=== PATIENT | female | born 2000 | race Two or more races ===

== ENCOUNTER 2024-01-11 14:52 | Emergency (ER) | payer MEDICAID, OTHER ==
[~2024-01-11] VITALS: Ht 170.2 cm; Wt 66.9 kg
[2024-01-11 15:56] LABS: Urine Bacteria None Seen /hpf (None Seen)
[2024-01-11 16:14] LABS: Urine Blood Negative /uL (Negative); Urine Clarity Clear (Clear); Urine Color Yellow (Yellow); Urine Mucus FEW (None Seen); Urine Protein, UAD TRACE (Negative); Urine Specific Gravity 1.029 (1.001-1.035); Urine Urobilinogen Normal (Negative); Urine WBC 18 /hpf (0 - 5); Urine pH 6.5 (5.0-9.0)
[2024-01-11 16:20] LABS: Basophils # (auto) 0 10 ^3/uL (0-0.2); Basophils % (auto) 0.5 % (0.0-2.0); Eosinophils # (auto) 0.1 10 ^3/uL (0-0.8); Eosinophils % (auto) 1.8 % (0.0-7.0); Hematocrit 39.5 % (36.0-46.0); Hemoglobin 13.9 g/dL (12.2-16.2); Lymphocytes # (auto) 2.2 10 ^3/uL (0.4-5.4); Lymphocytes % (auto) 27.5 % (10.0-50.0); Mean Corpuscular Hemoglobin 30.7 pg (28.0-32.0); Mean Corpuscular Hgb Conc. 35.1 g/dL (32.0-36.0); Mean Corpuscular Volume 87.5 fL (80.0-100.0); Monocytes # (auto) 0.7 10 ^3/uL (0-1.3); Monocytes % (auto) 8.7 % (0.0-12.0); Neutrophils % (auto) 61.5 % (37.0-80.0); Red Blood Cells 4.52 10^6/uL (4.0-5.20); Red Cell Distribution Width 13.1 % (11.8-14.3); White Blood Cell 8.1 10^3/uL (4.4-10.8)
[2024-01-11 16:31] LABS: Chloride 105 mmol/L (98-107); Potassium 3.4 mmol/L (3.5-5.1); Sodium 135 mmol/L (136-145)
[2024-01-11 16:32] LABS: Anion Gap 7 (5-15); Calcium 9.5 mg/dL (8.7-10.4); Carbon Dioxide 23 mmol/L (20-30)
[2024-01-11 16:37] LABS: BUN/Creatinine Ratio 12.7 (10.0-20.0); Blood Urea Nitrogen 9 mg/dL (9-23); Glucose 83 mg/dL (74-106)
[2024-01-11] MEDS: NITROFURANTOIN 100 mg CAP PO ONE (17:00)
[2024-01-11] MEDS ORDERED: NITR-87 PO (17:01)
[2024-01-11] MEDS ORDERED: ZOFR4T PO (17:01)
[2024-01-11 17:35] VITALS: BP 129/72; PULSE 98; RESP 20; TEMP 98.2; O2SAT 100
== END 2024-01-11 17:42 | disposition home or self-care (01) ==
LOC: ER 14:52
DX: O23.41 Unspecified infection of urinary tract in pregnancy, first trimester (principal); R10.2 Pelvic and perineal pain; N39.0 Urinary tract infection, site not specified; Z3A.01 Less than 8 weeks gestation of pregnancy
CPT/HCPCS: 36415; 80048; 81001; 84702; 85025

== ENCOUNTER 2024-09-11 18:51 | Observation (INO) | payer MEDICAID ==
[~2024-09-11] VITALS: Ht 170.2 cm; Wt 81.6 kg
[~2024-09-11 18:51] MED LIST: NITR-87 PO; ZOFR4T PO
--- NOTE | 2024-09-11 20:23 | DVH ---
BIOPHYSICAL PROFILE HISTORY: Term Comparison Study: None available at time of dictation. TECHNIQUE: Multiple real-time grayscale sonographic images through the gravid uterus of the fetus wi th duplex Doppler color flow and M-mode spectral analysis FINDINGS: Transabdominal ultrasound examination demonstrates a fetus in cephalic position. Heart rate is 163 be ats per minute. Placenta is anterior without evidence previa breathing is 2/2. movements 2/2. tone is 2/2. Fluid index is 12.93 cm with deepest pocket = 4.31 cm amniotic fluid = 2/2. IMPRESSION: 1. Biophysical profile = 02/05 no evidence for placenta previa and fetus is in cephalic position
--- NOTE | 2024-09-11 20:42 | DVHDS2 ---
Physician Discharge Progress N Final Diagnosis: Danis Azar contractions Operations or Procedures: Operations or Procedures S: 24 yo , IUP@40.1wks presents to OB Triage for vaginal pressure, DFM, and UCs since 09/10/24 afternoon. Denies LOF, vaginal bleeding, VIDAL, vision changes, RUQ pain. Limited PNC at [facility] with Lisset SANCHEZ due to pt no shows. Pt was asked why she has not been coming to appt's since 08/11/24, pt said due to personal reasons and did not elaborate. Pt reports OB labs/GTT drawn at [facility] in [place] months ago. Pt states she took castor oil a week ago to induce labor. O: VSS NST reactive [place]: Ucs q 7-12 min. SVE by RN: [facility] called, no lab results available. Walk-in OB labs and GBS ordered A: 24 yo , IUP@40.1wks [place] Azar contractions P: D/C home Discussed risk of meconium fluid when using castor oil, advised against it. FKC, PreE, Labor precautions reviewed Other Interventions Other Interventions [place] [address] Ph: [phone] DIAGNOSTIC IMAGING Diagnostic Imaging Report : [id number] Signed PATIENT: [place]: [id number] UNIT: [id number] : 2000 LOC: [facility] ROOM / BED: TRIAGE1 / A AGE / SEX: 24 / F ADM STATUS: ADM IN SERVICE 335 ORDERING PHYSICIAN: RISHI ORR CNM PROCEDURE(s): BPP - BIOPHYSICAL PROFILE REASON: Term ORDER NUMBER(s): [id number], ACCESSION NUMBER(s): [id number] BIOPHYSICAL PROFILE HISTORY: Term Comparison Study: None available at time of dictation. TECHNIQUE: Multiple real-time grayscale sonographic images through the gravid uterus of the fetus with duplex Doppler color flow and M-mode spectral analysis FINDINGS: Transabdominal ultrasound examination demonstrates a fetus in cephalic position. Heart rate is 163 beats per minute. Placenta is anterior without evidence previa breathing is 2/2. movements 2/2. tone is 2/2. Fluid index is 12.93 cm with deepest pocket = 4.31 cm amniotic fluid = 2/2. IMPRESSION: 1. Biophysical profile = 88 no evidence for placenta previa and fetus is in cephalic position ATED BY: REJI TRINIDAD MD DICTATED DATE/TIME: 09/11/242020 SIGNED BY: REJI TRINIDAD MD SIGNED DATE/TIME: 09/11/242020 CC: Condition on Discharge: Stable Disposition: Home Discharge Instructions: Diet: Regular Activity: No Restrictions, As Tolerated Follow Up/Referral: Return to OB Triage in 2 days Medications: PNV Follow Up Care: Specialist: f/u in 2 days Discharge Statement: kick counts and Preeclampsia warning signs reviewed. Labor precautions given and when to return to the hospital. OSCAR RICHARDS STUDENTMDW Sep 11, 2024 20:42
[2024-09-11 21:10] LABS: Basophils # (auto) 0 10 ^3/uL (0-0.2); Basophils % (auto) 0.3 % (0.0-2.0); Eosinophils # (auto) 0.1 10 ^3/uL (0-0.8); Hematocrit 40.7 % (36.0-46.0); Hemoglobin 13.5 g/dL (12.2-16.2); Lymphocytes # (auto) 1.9 10 ^3/uL (0.4-5.4); Lymphocytes % (auto) 16.5 % (10.0-50.0); Mean Corpuscular Hemoglobin 29.1 pg (28.0-32.0); Mean Corpuscular Hgb Conc. 33.3 g/dL (32.0-36.0); Mean Corpuscular Volume 87.3 fL (80.0-100.0); Monocytes # (auto) 0.8 10 ^3/uL (0-1.3); Monocytes % (auto) 7.2 % (0.0-12.0); Neutrophils # (auto) 8.5 10 ^3/uL (1.6-8.6); Nucleated Red Blood Cells % 0.1 %; Platelet Count (auto) 254 10^3/uL (140-450); Red Blood Cells 4.66 10^6/uL (4.0-5.20); Red Cell Distribution Width 14.3 % (11.8-14.3); White Blood Cell 11.3 10^3/uL (4.4-10.8)
[2024-09-11 21:13] LABS: Amphetamine Screen, Urine Neg (NEGATIVE); Barbiturate Scree,Urine Neg (NEGATIVE); Benzodiazephine Screen, Urine Neg (NEGATIVE); Cannabinoid Screen, Urine Neg (NEGATIVE); Cocaine Screen, Urine Neg (NEGATIVE); Opiate Scree,Urine Neg (NEGATIVE); Phencyclidine Screen, Urine Neg (NEGATIVE)
[2024-09-11 21:24] LABS: INR 0.92 (0.9-1.15); Partial Thromboplastin Time 27.8 SEC (24.5-34.5); Prothrombin Time 9.8 sec (9.3-11.8)
[2024-09-11 21:35] LABS: Albumin 4.2 g/dL (3.2-4.8); Anion Gap 10 (5-15); BUN/Creatinine Ratio 9.5 (10.0-20.0); Calcium 9.3 mg/dL (8.7-10.4); Glucose 95 mg/dL (74-106); Potassium 3.6 mmol/L (3.5-5.1); Sodium 138 mmol/L (136-145); Total Protein 7.1 g/dL (5.7-8.2)
[2024-09-11 21:37] LABS: Alanine Aminotransferase < 9 U/L (7-40); Alkaline Phosphatase 221 U/L (46-116); Aspartate Aminotransferase 9 U/L (13-40); Bilirubin, Total 0.2 mg/dL (0.2-1.0); Blood Urea Nitrogen 6 mg/dL (9-23); Carbon Dioxide 20 mmol/L (20-31); Chloride 108 mmol/L (98-107)
[2024-09-15 04:07] LABS: Rubella Antibodies, IgG 2.29 index (Immune >0.99)
[2024-09-15 12:07] LABS: QuantiFERON-TB Gold Plus Negative (Negative)
== END 2024-09-11 21:12 | disposition home or self-care (01) ==
LOC: LDRP 18:51
PROVIDERS: ADMIT Obstetrics & Gynecology; ATTEND Obstetrics & Gynecology
DX: O47.1 False labor at or after 37 completed weeks of gestation (principal); Z98.890 Other specified postprocedural states; Z79.899 Other long term (current) drug therapy; Z3A.40 40 weeks gestation of pregnancy
CPT/HCPCS: 36415; 59025; 76819; 80053; 80307; 81002; 83036; 85025; 85610; 85730; 86703; 86762; 86780; 86803; 86850; 86900; 86901; 87081; 87340; 94760; G0378

== ENCOUNTER 2024-09-13 00:28 | Inpatient (IN) | payer MEDICAID ==
[~2024-09-13] VITALS: Ht 170.2 cm; Wt 81.6 kg
[2024-09-13] MEDS ORDERED: ePHEDrine SULFATE 50 MG/ML AMP IV ONE (01:30)
[2024-09-13] MEDS ORDERED: NALOXONE HCL 0.4 MG/ML VIAL IV ONE (01:30)
[2024-09-13] MEDS ORDERED: LIDOCAINE 2%HCL (LOCAL ANESTH.) INJ 20ML MDV IJ PRN (01:45)
--- NOTE | 2024-09-13 01:51 | DVHHP2 ---
OB CC & HPI Date Date of Admission: Sep 13, 2024 Patient Identification: : 1 Para: 0 EDC: Sep 12, 2024 EGA: 40.1wks Chief Complaints: Reason for admission: rupture of membranes (Pt reports SROM at 2330 on 09/12/24) Admission Nurse Assessment Rev: Yes History of Present Complaints 24yo IUP@40.1wks presents for SROM at 2330 on 09/12/24. Pt reports UCs Q5 min. Pt reports DFM. Denies VB/VIDAL/vision changes/RUQ pain. Wants an epidural. PNC: Limited PNC at [facility] with Azy, CNM due to pt no shows. Last visit was on 08/11/24. GTT unknown, GBS collected on 09/11/24 in triage, results pending. Past Medical History Cardiac: No pertinent Hx Pulmonary: No pertinent Hx Central Nervous System: No pertinent Hx GI: No pertinent Hx Hemotology/Oncology: No pertinent Hx Hepatobiliary: No pertinent Hx Psychiatric: No pertinent Hx Musculoskeletal: No pertinent Hx Rheumotologic: No pertinent Hx Infectious Disease: No peritnent Hx ENT: No pertinent Hx Renal/: No pertinent Hx Endocrine: No pertinent Hx Dermatology: No pertinent Hx Past Surgical History: No pertinent Hx OB History OB History Care: Limited Care Ultrasounds: Normal mid trimester US Obstetrical Complications: None Medical Complications: None Allergies: Coded Allergies: NO KNOWN ALLERGIES (Unverified , 09/11/24) Allergies NKA Home Meds Active Scripts Ondansetron Odt 4MG Tab (ZOFRAN PO) 4 Mg Tb, 4 MG PO Q6HP PRN, #20 TAB ODT TAB-DISSOLVE IN MOUTH, THEN SWALLOW Prov:JOO AVENDAÑO PAC 01/11/24 Nitrofurantoin Monohydrate Mac (Macrobid) 100 Mg Cap, 100 MG PO BID for 5 Days, #10 CAP Prov:JOO AVENDAÑO PAC 01/11/24 Current Medications Current Medications Medications (Trade) Dose Ordered Sig/Mj Route PRN Reason Start Time Stop Time Status Last Admin Lactated Ringer's 1,000 ml @ 125 mls/hr Q8H IV 09/13/24 01:45 Penicillin G Potassium [id number] units/Dextrose 50 ml @ 100 mls/hr Q4H IV 09/13/24 05:45 Witch Marilyn (Tucks) 1 pad PRN PRN TOP PERINEAL AREA DISCOMFORT 09/13/24 01:45 Sodium Lauryl Sulfate (Phisoderm) 240 ml PRN PRN TOP PERINEAL AREA DISCOMFORT 09/13/24 01:45 Benzocaine (Dermoplast) 1 applic PRN PRN TOP PERINEAL AREA DISCOMFORT 09/13/24 01:45 Lidocaine HCl (Xylocaine) 40 ml ONCE PRN IJ PERINEAL AREA DISCOMFORT 09/13/24 01:45 Family & Social History Family/Social History Past Family/Social History: Denies Blood Type: O+ Rubella: unknown RPR/VDRL: Negative GBS Status: Unknown HBsAG: Unknown Review of Systems Constitutional: No symptom reported Ears, Nose, & Throat: No symptom reported Eyes: No symptom reported Pulmonary/Respiratory: No symptom reported Cardiovascular: No symptom reported Gastrointestinal: No symptom reported Genitourinary: No symptom reported Musculoskeletal: No symptom reported Skin: No symptom reported Psychiatric: No symptom reported Endocrine: No symptom reported Hemotologic/Lymphatic: No symptom reported OB Admission Exam Physical Exam Vitals: VSS, see chart HEENT: TMs Normal, Fontanelles Normal, Nasal Mucosa Normal, Eyes non-injected, Oropharynx Normal, PERRLA, Moist Membranes, EOMI Heart: Rhythm Normal Lungs: Clear Abdomen: Gravid Extremities: Normal Reflexes: Normal Pelvic Exam: SVE by RN 2.5/80/-2 Membranes: Ruptured (at 2330 on 09/12/24 per patient report) Amniotic Fluid: Clear Heart Rate: 150's Accelerations: Accelerations Present Decelerations: No Decelerations Penitentiary Variability: Average (6-25) Contractions on Admission: < 5 Minutes Apart Date/Time Contractions Began: 09/12/24 Frequency of Contractions: pt states every 5 min Duration: 90 Intensity: Moderate OB Plan Plan Admitting Diagnosis: 24yo IUP@40.1wks SROM Category I EFM GBS unknown Plan: Expectant Management Other Plan: Admit to L&D Informed consent obtained Expectant management for now due to frequent UCs Discussed potential of starting pitocin with pt. Pt agrees with POC. monitoring per order Routine labs ordered Pain mgmt PRN GBS prophylaxis Frequent position changes/ambulation in and out of bed encouraged Limit SVE unless necessary Intrauterine resuscitation PRN Anticipate CNM will consult with Dr. Vasquez PRN Visit Coding OBGYN Date of Service: Sep 13, 2024 Billing Provider: GAGAN LIVINGSTON CNM TELEGRAPH MECHANIC Common Visit Codes: 31515-TASWUMP INP/OBS CARE (HIGH) TELEGRAPH MECHANIC Procedure Codes: 65529-84- NON-STRESS TEST OSCAR RICHARDS STUDENTMDW Sep 13, 2024 01:51
[2024-09-13] MEDS: DERMOPLAST 60ML BOTTLE TOP PRN (02:15)
[2024-09-13] MEDS: PHISODERM TOP SOLN 240ML BTL TOP PRN (02:15)
[2024-09-13] MEDS: WITCH HAZEL-GLYCERIN PAD TOP PRN (02:15)
[2024-09-13] MEDS: LACTATED RINGER'S 1,000 ML IV SCH (02:18)
[2024-09-13] MEDS: PENICILLIN G POT 5MIL/D5 50ML 50 ML IV ONE (02:18)
[2024-09-13 02:33] LABS: Urine Bacteria FEW /hpf (None Seen); Urine Blood Negative /uL (Negative); Urine Budding Yeast OCCASIONAL /hpf (None Seen); Urine Clarity Clear (Clear); Urine Color Yellow (Yellow); Urine Hyaline Cast FEW /lpf (0 - 2); Urine Mucus FEW (None Seen); Urine Protein, UAD 1+ (Negative); Urine Specific Gravity 1.021 (1.001-1.035); Urine Squamous Epithelial Cell FEW /hpf (<5); Urine Urobilinogen Normal (Negative); Urine WBC 16 /HPF (0-5)
[2024-09-13] MEDS: ROPIVACAINE HCL 200 ML ONE (02:35)
[2024-09-13 03:22] LABS: Cannabinoid Screen, Urine Neg (NEGATIVE)
[2024-09-13 04:49] LABS: Amphetamine Screen, Urine Neg (NEGATIVE); Barbiturate Scree,Urine Neg (NEGATIVE); Benzodiazephine Screen, Urine Neg (NEGATIVE); Cocaine Screen, Urine Neg (NEGATIVE); Opiate Scree,Urine Neg (NEGATIVE); Phencyclidine Screen, Urine Neg (NEGATIVE)
--- NOTE | 2024-09-13 05:11 | DVH ---
LIMITED OB ULTRASOUND > 14 WKS: HISTORY: 40.3 AND LIMITED PNC TECHNIQUE: Multiple real-time grayscale images of the gravid uterus with duplex Doppler color flow an d M-mode spectral analysis. TRANSDUCER: Transabdominal FINDINGS: IUP single live fetus at 40 weeks 0 days based on composite averages of the BPD, head circumference, abdominal circumference and femur length Estimated weight 3983 grams heart rate 145 beats per minute KELLEY 7.6 cm Cervix not well visualized. Cephalic Presentation Anterior Placenta without previa or abruption. IMPRESSION: IUP single live fetus at 40 weeks 0 days AUA corresponding to an SRINI of 09/13/2024.
[2024-09-13] MEDS ORDERED: LACT. RINGERS/OXYTOCIN 20UNITS 500 ML IV ONE ×2 (06:00→06:30)
[2024-09-13] MEDS: PENICILLIN G POTASSIUM 2,500,000 UNITS in D5W 5% 50 ML IV SCH (06:09)
--- NOTE | 2024-09-13 08:28 | DVHPN2 ---
Chief Complaints Patient reports: No new complaints Nursing reports: No new complaints Objective Medications Current Medications Medications (Trade) Dose Ordered Sig/Mj Route PRN Reason Start Time Stop Time Status Last Admin Benzocaine (Dermoplast) 1 applic PRN PRN TOP PERINEAL AREA DISCOMFORT 09/13/24 01:45 09/13/24 02:15 Lactated Ringer's 1,000 ml @ 125 mls/hr Q8H IV 09/13/24 01:45 09/13/24 02:18 Lidocaine HCl (Xylocaine) 40 ml ONCE PRN IJ PERINEAL AREA DISCOMFORT 09/13/24 01:45 Ondansetron HCl (Zofran) 4 mg Q4HPRN PRN IV NAUSEA / VOMITING 09/13/24 07:30 Penicillin G Potassium [id number] units/Dextrose 50 ml @ 100 mls/hr Q4H IV 09/13/24 05:45 09/13/24 06:09 Sodium Lauryl Sulfate (Phisoderm) 240 ml PRN PRN TOP PERINEAL AREA DISCOMFORT 09/13/24 01:45 09/13/24 02:15 Witch Marilyn (Tucks) 1 pad PRN PRN TOP PERINEAL AREA DISCOMFORT 09/13/24 01:45 09/13/24 02:15 Others ve- 10/0 Ass/Plan Assessment active labor Plan possib of shoulder dystocia option of pcs to avoid that d/w pt .pt doesnt want it and wants to proceed with trial of labor .pt missed all her apts from aug onwards and presented in active labor Visit Coding OBGYN Date of Service: Sep 13, 2024 Billing Provider: LAURA LIRIANO DO SHOEMAKER APPRENTICE Common Visit Codes: 58189-MJK/OBS SAME DATE (HIGH) SHOEMAKER APPRENTICE Procedure Codes: 38335-64- NON-STRESS TEST LAURA LIRIANO DO Sep 13, 2024 08:28
[2024-09-13 09:47] LABS: Basophils # (auto) 0 10 ^3/uL (0-0.2); Basophils % (auto) 0.1 % (0.0-2.0); Eosinophils # (auto) 0 10 ^3/uL (0-0.8); Hematocrit 39.4 % (36.0-46.0); Lymphocytes # (auto) 0.9 10 ^3/uL (0.4-5.4); Lymphocytes % (auto) 5.2 % (10.0-50.0); Mean Corpuscular Hemoglobin 28.7 pg (28.0-32.0); Mean Corpuscular Volume 86.9 fL (80.0-100.0); Monocytes # (auto) 1.2 10 ^3/uL (0-1.3); Monocytes % (auto) 6.9 % (0.0-12.0); Neutrophils # (auto) 15.8 10 ^3/uL (1.6-8.6); Neutrophils % (auto) 87.8 % (37.0-80.0); Nucleated Red Blood Cells % 0.2 %; Platelet Count (auto) 227 10^3/uL (140-450); Red Blood Cells 4.53 10^6/uL (4.0-5.20); Red Cell Distribution Width 13.8 % (11.8-14.3); White Blood Cell 17.9 10^3/uL (4.4-10.8)
[2024-09-13 10:01] LABS: INR 0.97 (0.9-1.15); Partial Thromboplastin Time 29.2 SEC (24.5-34.5); Prothrombin Time 10.3 sec (9.3-11.8)
[2024-09-13 10:03] LABS: Anion Gap 10 (5-15); Bilirubin, Total 0.5 mg/dL (0.2-1.0); Calcium 9.3 mg/dL (8.7-10.4); Carbon Dioxide 21 mmol/L (20-31); Chloride 105 mmol/L (98-107); Glucose 101 mg/dL (74-106); Potassium 3.9 mmol/L (3.5-5.1); Total Protein 6.6 g/dL (5.7-8.2)
[2024-09-13 10:04] LABS: Alanine Aminotransferase < 9 U/L (7-40); Alkaline Phosphatase 203 U/L (46-116); Aspartate Aminotransferase 11 U/L (13-40); BUN/Creatinine Ratio 6.8 (10.0-20.0); Blood Urea Nitrogen < 5 mg/dL (9-23); Sodium 136 mmol/L (136-145)
--- NOTE | 2024-09-13 11:47 | DVHPN2 ---
Chief Complaints Patient reports: No new complaints Nursing reports: No new complaints Objective Medications Current Medications Medications (Trade) Dose Ordered Sig/Mj Route PRN Reason Start Time Stop Time Status Last Admin Benzocaine (Dermoplast) 1 applic PRN PRN TOP PERINEAL AREA DISCOMFORT 09/13/24 01:45 09/13/24 02:15 Lactated Ringer's 1,000 ml @ 125 mls/hr Q8H IV 09/13/24 01:45 09/13/24 02:18 Lidocaine HCl (Xylocaine) 40 ml ONCE PRN IJ PERINEAL AREA DISCOMFORT 09/13/24 01:45 Ondansetron HCl (Zofran) 4 mg Q4HPRN PRN IV NAUSEA / VOMITING 09/13/24 07:30 Penicillin G Potassium [id number] units/Dextrose 50 ml @ 100 mls/hr Q4H IV 09/13/24 05:45 09/13/24 09:59 Sodium Lauryl Sulfate (Phisoderm) 240 ml PRN PRN TOP PERINEAL AREA DISCOMFORT 09/13/24 01:45 09/13/24 02:15 Witch Marilyn (Tucks) 1 pad PRN PRN TOP PERINEAL AREA DISCOMFORT 09/13/24 01:45 09/13/24 02:15 Others ve-10cm/0 Studies Laboratory Tests 09/13/24 09:17 Test 09/13/24 09:17 Range/Units Serum Glucose 101 74-106 mg/dL Ass/Plan Assessment active labor Plan stop epidural ,labor down induce some power for pushing since pt doesnt feel any uc Visit Coding OBGYN Date of Service: Sep 13, 2024 Billing Provider: LAURA LIRIANO DO HEARING IMPAIRED TEACHER Common Visit Codes: 97661-EQS/OBS SAME DATE (HIGH) HEARING IMPAIRED TEACHER Procedure Codes: 32985-20- NON-STRESS TEST LAURA LIRIANO DO Sep 13, 2024 11:47
[2024-09-13] MEDS ORDERED: ONDANSETRON HCL 4 MG/2 ML VIAL ONE ×2 (13:10→14:06)
[2024-09-13] MEDS: ceFAZolin 2 GM/D5W50ml 50 ML IV ONE (13:26)
[2024-09-13] MEDS ORDERED: MORPHINE SULF PF 5 MG/10 ML VIAL ONE (13:30)
[2024-09-13] MEDS ORDERED: oxyTOCIN 10 UNIT/ML 10ML VIAL ONE (13:30)
[2024-09-13] MEDS ORDERED: LIDOCAINE 2% (LOCAL ANESTH.) PF 5ml SDV ONE (13:36)
[2024-09-13] MEDS: SUCCINYLCHOLINE CHLORIDE 20 MG/ML 10ML VIAL IV ONE (13:40)
[2024-09-13] MEDS ORDERED: fentaNYL CITRATE 100 MCG/2 ML VL ONE ×2 (13:59→14:14)
[2024-09-13] MEDS ORDERED: LACTATED RINGER'S 1,000 ML IV SCH (14:00)
[2024-09-13] MEDS ORDERED: LACTATED RINGER'S 1,000 ML IV ONE (14:00)
[2024-09-13] MEDS ORDERED: MIDAZOLAM HCL 2MG/2ML 2ml VIAL (1mg/ml) ONE (14:03)
[2024-09-13] MEDS ORDERED: MEPERIDINE HCL (25 MG/ML) 1ML VIAL ONE (14:04)
[2024-09-13] MEDS ORDERED: FUROSEMIDE 20 MG/2 ML VIAL ONE (14:06)
[2024-09-13] MEDS: ONDANSETRON HCL 4 MG/2 ML VIAL IV PRN (14:10)
[2024-09-13] MEDS ORDERED: PROPOFOL 10 MG/ML 20 ML IV ONE ×3 (14:13→14:38)
[2024-09-13] MEDS ORDERED: ceFAZolin 1GM/50ML 50 ML IV SCH (14:15)
[2024-09-13] MEDS ORDERED: LACT. RINGERS/OXYTOCIN 20UNITS 1,000 ML IV ONE ×2 (14:15→17:45)
[2024-09-13] MEDS ORDERED: ONDANSETRON HCL 4 MG/2 ML VIAL IV PRN (14:15)
[2024-09-13] MEDS ORDERED: IBUP-1456 PO (14:19)
[2024-09-13] MEDS ORDERED: DOCU-94 PO (14:19)
[2024-09-13] MEDS ORDERED: HYDR-4072 PO (14:19)
[2024-09-13] MEDS ORDERED: ceFAZolin 2 GM/D5W50ml 50 ML IV ONE (14:30)
--- NOTE | 2024-09-13 14:49 | DVHHP ---
ADMIT DATE: 09/13/2024 CHIEF COMPLAINT: Failure to progress, arrest of descent. HISTORY OF PRESENT ILLNESS: The patient is a 24-year-old 1, para 0 with due date of 09/12/2024, estimated gestational age of 40+ weeks, admitted for rupture of membrane. She had limited care. She had no shows since 08/11/2024. The patient presented to labor and delivery with spontaneous rupture of membranes. The patient progressed to complete, however, did not descent for 6 hours. Subsequently, the patient is taken for a primary . Estimated weight appears to be ____. Risks, complication, alternative discussed with the patient. The patient wishes to proceed with primary . PAST MEDICAL HISTORY: None. PAST SURGICAL HISTORY: None. SOCIAL HISTORY: None. FAMILY HISTORY: None. OBSTETRIC AND GYNECOLOGIC HISTORY: Limited care. REVIEW OF SYSTEMS: Consistent with HPI. PHYSICAL EXAMINATION: VITAL SIGNS: Stable, afebrile. HEENT: Within normal limits. CARDIOVASCULAR: Regular rate and rhythm. LUNGS: Clear to auscultation. BREASTS: Symmetrical. No masses. ABDOMEN: Gravid. Positive heart, estimated weight ____. PELVIC: 10 cm, 0 station with caput. EXTREMITIES: No clubbing, cyanosis or edema. IMPRESSION: * Intrauterine at 40+ weeks with spontaneous rupture of membrane. * Limited care. * Failure to progress, arrest of descent. PLAN: Primary low transverse section. Informed consent obtained. Risks, complication of surgery including infection, bleeding, hematoma formation, injury to bowel, bladder, surrounding organs, possibility of DVT, pulmonary embolism, risk of anesthesia discussed with the patient. Options reviewed. All questions answered. The patient fully understands. She wishes to proceed with planned procedure. DO JOANNE Carrizales/MARY/TAMIKO TID: [id number] RECEIPT: [id number]
[2024-09-13] MEDS: CARBOPROST TROMETHAMINE 250 MCG/1ML VIAL IM ONE (15:06)
--- NOTE | 2024-09-13 15:35 | POSTOP ---
Post-Operative Note Post-Operative Note Preop Diagnosis IUP AT 40WKS WITH LIMITED CARE,ARREST OF DESCENT,SROM Postop Diagnosis: SAME,OP,UTERINE ATONY Operation performed PLTCS Specimen BABY GIRL,EFW 8-7,OP Anesthesia: General Anesthesiologist: NUYGEN Blood Loss(fluid mgmt) 800ML Surgeon Laura Vasquez Professor Of Education ALEXANDRE Implant NA Complications & Mgmt NONE Additional Remarks H AND P [id number] Date 09/13/24 Time 15:32 Visit Coding OBGYN Date of Service: Sep 13, 2024 Billing Provider: LAURA VASQUEZ DO BOWL TOPPER Common Visit Codes: 16239-NQV/OBS DISCH DAY >30MIN BOWL TOPPER Procedure Codes: 19665-D-LXKLQMO DELIVERY ONLY LAURA VASQUEZ DO Sep 13, 2024 15:35
--- NOTE | 2024-09-13 15:49 | DVHOP2 ---
Operative Report DATE OF OPERATION: 09/13/24 PREOPERATIVE DIAGNOSES: Term 40WKS WITH SROM,FTP ,ARREST OF DESCENT,LIMITED CARE POSTOPERATIVE DIAGNOSES: SAME,OP,UTERINE ATONY SURGEON: Candis Vasquez D.O./ALEXANDRE ANESTHESIOLOGIST: SUNI TYPE OF ANESTHESIA : GENERAL CONSENT: The patient was informed of the risks and benefits of the procedure. The patient was informed of the risks and benefits of the procedure. These include but are not limited to , complications of anesthesia, postoperative infection, incomplete relief of symptoms, recurrence of symptoms, damage to blood vessels, nerves and tendons, deep venous thrombosis, pulmonary embolism and possible need for repeat surgery in the future. FINDINGS: Baby [F] with Apgars of [8] and [9]. Grossly normal appearing tubes and ovaries.8-7 PROCEDURES: Primary low transverse section. PROCEDURE IN DETAIL: The patient was taken to the operating room. She already had an epidural in place. She was then placed in supine position with a leftward tilt. A Pfannenstiel skin incision was made 2 cm above the symphysis pubis. This incision was carried to the underlying layer of fascia. The fascia was nicked in the midline. The incision was extended laterally. The superior aspect of the fascial incision was grasped and elevated. The same procedure was done to the inferior aspect of the fascial incision. The rectus muscles were then in the midline. Peritoneum was identified and entered. Peritoneal incision was extended superiorly and inferiorly with good visualization of the bladder. Bladder blade was inserted. Vesicouterine peritoneum was identified and entered. Lower uterine segment was incised in a transverse fashion. The was delivered from vertex presentation. was baby [F] with Apgars [8] and [9]. Placenta was then removed manually. Uterus was exteriorized and cleared of all clots and debris. UTERINE ATONY NOTED AND HEMOBATE GIVEN . The incision was repaired using 0 Vicryl in a double-layered fashion. No bleeding was noted. Uterus was then returned to the abdomen. The gutters were cleared off all clots and debris. Peritoneum was closed using 0 Vicryl, fascia was closed using 0 Maxon, and skin was closed using sushma. The patient tolerated the procedure well. She was taken to the recovery room in stable condition. ESTIMATED BLOOD LOSS: Estimated blood loss was noted to be 800 mL. Visit Coding OBGYN Date of Service: Sep 13, 2024 Billing Provider: CANDIS VASQUEZ DO FOOD SCIENTIST Common Visit Codes: 14279-FIG/OBS SAME DATE (HIGH) FOOD SCIENTIST Procedure Codes: 41645-I-HXVTWLB DELIVERY ONLY CANDIS VASQUEZ DO Sep 13, 2024 15:49
[2024-09-13 15:52] VITALS: PULSE 100; RESP 14; O2SAT 99
[2024-09-13] MEDS ORDERED: ONDANSETRON HCL 4 MG/2 ML VIAL IV ONE (16:00)
[2024-09-13 16:22] VITALS: PULSE 101; RESP 18; O2SAT 100
[2024-09-13] MEDS: MEPERIDINE HCL (25 MG/ML) 1ML VIAL IV PRN (16:39)
[2024-09-13] MEDS: ACETAMINOPHEN IV 1000 MG/100ML (10MG/ML) IV PRN (16:50)
[2024-09-13] MEDS: HYDROmorphone HCL 2 MG/ML VL/or syr IV PRN (16:55)
[2024-09-13 17:19] VITALS: BP 135/89; PULSE 107; RESP 18; TEMP 98.7; O2SAT 98
[2024-09-13] MEDS ORDERED: GUM (CHEWING) 1 GUM CHEW CHEW ONE (17:45)
[2024-09-13 19:00] VITALS: BP 130/76; PULSE 98; RESP 16; TEMP 98.2; O2SAT 95
[2024-09-13] MEDS: ceFAZolin 1GM/50ML 50 ML IV ONE (22:59)
[2024-09-13 23:00] VITALS: BP 130/72; PULSE 99; RESP 16; TEMP 98.5; O2SAT 96
[2024-09-13 23:20] LABS: Basophils # (auto) 0 10 ^3/uL (0-0.2); Basophils % (auto) 0.1 % (0.0-2.0); Eosinophils # (auto) 0 10 ^3/uL (0-0.8); Hemoglobin 12.3 g/dL (12.2-16.2); Lymphocytes # (auto) 1.3 10 ^3/uL (0.4-5.4); Mean Corpuscular Hemoglobin 28.7 pg (28.0-32.0); Mean Corpuscular Hgb Conc. 33.2 g/dL (32.0-36.0); Mean Corpuscular Volume 86.5 fL (80.0-100.0); Monocytes # (auto) 1.2 10 ^3/uL (0-1.3); Monocytes % (auto) 5.4 % (0.0-12.0); Neutrophils # (auto) 18.9 10 ^3/uL (1.6-8.6); Neutrophils % (auto) 88.5 % (37.0-80.0); Platelet Count (auto) 230 10^3/uL (140-450); Red Blood Cells 4.27 10^6/uL (4.0-5.20); White Blood Cell 21.4 10^3/uL (4.4-10.8)
[2024-09-14] MEDS: ACETAMINOPHEN IV 1000 MG/100ML (10MG/ML) IV PRN (00:29)
--- NOTE | 2024-09-14 02:58 | DVHPN2 ---
Progress Note Date Seen: Sep 14, 2024 Subjective S: Lochia minimal. Pain relieved with IV analgesics. Not passing flatus and no BM yet. w/o problem vital signs Vital Sign Date Time Temp Pulse Resp B/P (MAP) Pulse Ox O2 Delivery O2 Flow Rate FiO2 09/13/24 23:00 98.5 99 16 130/72 (91) 96 98.5 09/13/24 19:00 Room Air 09/13/24 16:22 0 09/13/24 16:22 100 medications Current Medications Medications Dose Ordered Sig/Mj Route Start Time Stop Time Status Last Admin Dose Admin Witdandre Marilyn 1 pad PRN PRN TOP 09/13/24 01:45 09/13/24 02:15 1 PAD Sodium Lauryl Sulfate 240 ml PRN PRN TOP 09/13/24 01:45 09/13/24 02:15 240 ML Benzocaine 1 applic PRN PRN TOP 09/13/24 01:45 09/13/24 02:15 1 APPLIC Lidocaine HCl 40 ml ONCE PRN IJ 09/13/24 01:45 Ondansetron HCl 4 mg Q4HP PRN IV 09/13/24 14:15 Hydromorphone HCl 1 mg Q3HPRN PRN IV 09/13/24 17:15 Lactated Ringer's 1,000 ml @ 125 mls/hr Q8H IV 09/13/24 17:45 Cefazolin Sodium 50 ml @ 100 mls/hr Q8H IV 09/13/24 17:45 09/14/24 10:14 Acetaminophen 1,000 mg Q8HPRN PRN IV 09/14/24 00:30 09/15/24 00:29 09/14/24 00:29 1,000 MG laboratory and microbiology Laboratory Tests 09/13/24 22:57 09/13/24 09:17 Test 09/13/24 09:17 Range/Units Serum Glucose 101 74-106 mg/dL Objective A&O x3 NAD. Afebrile, VSS Chest: heart and lung sounds normal. Breasts: Nipples intact w/o cracks or soreness Abdomen: normal BS, soft, non-tender, no rebound or guarding, fundus firm @ U- 1, Lower abdominal Incision site with Sylke dressing on, open to fresh air, same clean, dry and intact. No edema, erythema or induration Extremities: no edema or tenderness Lochia - minimal Assessment/Plan A/P: 24yo now Post operative & ppd #1 s/p Primary Section doing well. Blood Type: O Rh: Positive Breast feeding Rubella Unknown Pain control with medications d/c Doll cath and ambulate Bowel regimen: Increase fluid intake and fiber in diet, Laxative PRN Discharge plan: Assess patient daily Plan discussed with: Patient, Spouse Visit Coding OBGYN Date of Service: Sep 14, 2024 Billing Provider: GAGAN LIVINGSTON CNM GENERAL STORE MANAGER Common Visit Codes: [id number] INP/OBS CARE(HIGH) GAGAN LIVINGSTON CNM Sep 14, 2024 02:58
[2024-09-14 03:00] VITALS: BP 124/77; PULSE 105; RESP 16; TEMP 99.3; O2SAT 96
[2024-09-14] MEDS: HYDROmorphone HCL 2 MG/ML VL/or syr IV PRN (04:54)
[2024-09-14] MEDS: LACTATED RINGER'S 1,000 ML IV SCH (04:59)
[2024-09-14] MEDS ORDERED: HYDROcodone-ACET 5/325MG TAB PO PRN (06:30)
[2024-09-14] MEDS ORDERED: LACTATED RINGER'S 1,000 ML IV SCH (06:30)
[2024-09-14] MEDS: ceFAZolin 2 GM/D5W50ml 50 ML IV ONE (06:51)
[2024-09-14 06:53] VITALS: BP 131/84; PULSE 110; PULSE 97; RESP 18; TEMP 98.3; O2SAT 97
[2024-09-14] MEDS: ceFAZolin 1GM/50ML 50 ML IV SCH (06:59)
[2024-09-14] MEDS: HYDROcodone-ACET 5/325MG TAB PO PRN (08:51)
[2024-09-14 08:56] LABS: Basophils # (auto) 0 10 ^3/uL (0-0.2); Basophils % (auto) 0.1 % (0.0-2.0); Eosinophils # (auto) 0 10 ^3/uL (0-0.8); Eosinophils % (auto) 0.1 % (0.0-7.0); Hematocrit 33.1 % (36.0-46.0); Hemoglobin 11.1 g/dL (12.2-16.2); Lymphocytes # (auto) 1.5 10 ^3/uL (0.4-5.4); Lymphocytes % (auto) 8.4 % (10.0-50.0); Mean Corpuscular Hgb Conc. 33.6 g/dL (32.0-36.0); Mean Corpuscular Volume 86.2 fL (80.0-100.0); Monocytes # (auto) 1.1 10 ^3/uL (0-1.3); Monocytes % (auto) 6.2 % (0.0-12.0); Neutrophils # (auto) 15.2 10 ^3/uL (1.6-8.6); Neutrophils % (auto) 85.2 % (37.0-80.0); Nucleated Red Blood Cells % 0.1 %; Platelet Count (auto) 218 10^3/uL (140-450); Red Blood Cells 3.84 10^6/uL (4.0-5.20); Red Cell Distribution Width 14.1 % (11.8-14.3); White Blood Cell 17.9 10^3/uL (4.4-10.8)
[2024-09-14 11:00] VITALS: BP 126/76; PULSE 96; RESP 16; TEMP 98.1; O2SAT 96
[2024-09-14] MEDS: DOCUSATE SOD 100 MG CAP PO SCH (11:32)
[2024-09-14] MEDS: SIMETHICONE 80 MG CHEWABLE TABLET PO SCH (11:32)
[2024-09-14] MEDS ORDERED: ceFAZolin 1GM/50ML 50 ML IV ONE (13:53)
[2024-09-14 15:12] VITALS: BP 123/82; PULSE 99; RESP 16; TEMP 98.5; O2SAT 98
[2024-09-14] MEDS: IBUPROFEN 800 MG TAB PO PRN (18:36)
[2024-09-14 19:00] VITALS: BP 124/75; PULSE 95; RESP 18; TEMP 98.5; O2SAT 96; O2SAT 97
[2024-09-14 23:15] VITALS: BP 125/69; PULSE 82; RESP 16; TEMP 98.2; O2SAT 99
[2024-09-15 03:00] VITALS: BP 119/67; PULSE 80; RESP 18; TEMP 98.1; O2SAT 96
--- NOTE | 2024-09-15 05:05 | DVHDS2 ---
Discharge Summary Date of Admission Sep 13, 2024 at 00:50 Date of Discharge: Sep 15, 2024 Admitting Diagnosis Term , limited care with SROM and Labor Labs/Diagnostic Data: Laboratory Results Test 09/14/24 08:36 09/13/24 09:17 09/13/24 05:02 09/13/24 01:35 White Blood Count 17.9 10^3/uL (4.4-10.8) Red Blood Count 3.84 10^6/uL (4.0-5.20) Hemoglobin 11.1 g/dL (12.2-16.2) Hematocrit 33.1 % (36.0-46.0) Mean Corpuscular Volume 86.2 fL (80.0-100.0) Mean Corpuscular Hemoglobin 29.0 pg (28.0-32.0) Mean Corpuscular Hemoglobin Concent 33.6 g/dL (32.0-36.0) Red Cell Distribution Width 14.1 % (11.8-14.3) Platelet Count 218 10^3/uL (140-450) Mean Platelet Volume 7.9 fL (6.9-10.8) Neutrophils (%) (Auto) 85.2 % (37.0-80.0) Lymphocytes (%) (Auto) 8.4 % (10.0-50.0) Monocytes (%) (Auto) 6.2 % (0.0-12.0) Eosinophils (%) (Auto) 0.1 % (0.0-7.0) Basophils (%) (Auto) 0.1 % (0.0-2.0) Neutrophils # (Auto) 15.2 10 ^3/uL (1.6-8.6) Lymphocytes # (Auto) 1.5 10 ^3/uL (0.4-5.4) Monocytes # (Auto) 1.1 10 ^3/uL (0-1.3) Eosinophils # (Auto) 0 10 ^3/uL (0-0.8) Basophils # (Auto) 0 10 ^3/uL (0-0.2) Nucleated Red Blood Cells 0.1 % Prothrombin Time 10.3 sec (9.3-11.8) Prothrombin Time INR 0.97 (0.9-1.15) Activated Partial Thromboplast Time 29.2 SEC (24.5-34.5) Sodium Level 136 mmol/L (136-145) Potassium Level 3.9 mmol/L (3.5-5.1) Chloride Level 105 mmol/L (98-107) Carbon Dioxide Level 21 mmol/L (20-31) Anion Gap 10 (5-15) Blood Urea Nitrogen < 5 mg/dL (9-23) Creatinine 0.74 mg/dL (0.550-1.02) Glomerular Filtration Rate Calc 116 mL/min (>90) BUN/Creatinine Ratio 6.8 (10.0-20.0) Serum Glucose 101 mg/dL (74-106) Calcium Level 9.3 mg/dL (8.7-10.4) Total Bilirubin 0.5 mg/dL (0.2-1.0) Aspartate Amino Transferase (AST) 11 U/L (13-40) Alanine Aminotransferase (ALT) < 9 U/L (7-40) Alkaline Phosphatase 203 U/L (46-116) Total Protein 6.6 g/dL (5.7-8.2) Albumin 4.0 g/dL (3.2-4.8) Urine Opiates Screen Neg (NEGATIVE) Urine Fentanyl Screen Neg (NEGATIVE) Urine Barbiturates Screen Neg (NEGATIVE) Urine Phencyclidine Screen Neg (NEGATIVE) Urine Amphetamines Screen Neg (NEGATIVE) Urine Benzodiazepines Screen Neg (NEGATIVE) Urine Cocaine Screen Neg (NEGATIVE) Urine Cannabinoids Screen Neg (NEGATIVE) Test 09/13/24 01:31 Urine Color Yellow (Yellow) Urine Clarity Clear (Clear) Urine pH 7.0 (5.0-9.0) Urine Specific [place] 1.021 (1.001-1.035) Urine Protein 1+ (Negative) Urine Ketones Negative (Negative) Urine Blood Negative /uL (Negative) Urine Nitrite Negative (Negative) Urine Bilirubin Negative (Negative) Urine Urobilinogen Normal mg/dL (Negative) Urine Leukocyte Esterase Negative /uL (Negative) Urine RBC 6 /hpf (0 - 4) Urine Microscopic WBC 16 /HPF (0-5) Urine Squamous Epithelial Cells Few /hpf (<5) Urine Transitional Epithelial Cells Few /hpf (<2) Urine Bacteria Few /hpf (None Seen) Urine Hyaline Casts Few /lpf (0 - 2) Urine Granular Casts Mod /lpf (0) Urine Mucus Few (None Seen) Urine Yeast (Budding) Occasional /hpf (None Urine Glucose Normal mg/dL (Normal) Other Laboratory Tests 09/14/24 08:36 09/13/24 09:17 Brief Hx & Hospital Course: Patient admitted in labor w/ SROM Progressed to 10cm but could not push to achieve delivery x 6 hr (arrest of descent) s/p 1' C/Section performed, baby 8lb 7oz Normal PP course Normal bowel. bladder function. Pain controlled Stable for D/C on POD#2 Operations or Procedures Primary low transv c/section Condition at Discharge: Stable Final Diagnosis/Problems List Term with PROM in labor, arrest of descent 2nd stage of labor Discharge Disposition: Home Discharge Instruct/Medications Diet: Regular Activity: Light activity Activity comment: Pelvic rest x 6 wk Follow Up/Referral: [address] Vasquez Medications: eRx NORCO Discharge Statement: "Patient was advised to return to the ER or call 911 if any headaches, dizziness, shortness of breath, chest pain, abdominal pain, bleeding, fevers, or worsening of medical condition. Patient was counseled about treatment plan, medications, possible side effects, patientverbalized understanding. All questions were answered to the best of my ability. This discharge took greater then 30 minutes in planning, reviewing documentation, counseling the patient, and discussing with other team members." ASSESSMENT ASSESSMENT Assessment SAME,OP,UTERINE ATONY Visit Coding OBGYN Date of Service: Sep 15, 2024 Billing Provider: JAMMIE MCGUIRE DO MECHANICAL DRAFTER Common Visit Codes: 35763-KGX/OBS DISCH DAY <30MIN JAMMIE MCGUIRE DO Sep 15, 2024 05:05
[2024-09-15 07:10] VITALS: BP 120/68; PULSE 96; RESP 16; TEMP 98; O2SAT 97
[2024-09-15 11:05] VITALS: BP 120/88; PULSE 110; RESP 16; TEMP 98.4; O2SAT 97
[2024-09-15] MEDS: SIMETHICONE 80 MG CHEWABLE TABLET PO SCH (12:03)
[2024-09-15 15:15] VITALS: BP 122/77; PULSE 96; RESP 16; TEMP 98.1; O2SAT 97
--- NOTE | 2024-09-15 16:00 | DVHINCON2 ---
Date of Service if different f: Sep 15, 2024 Time of Service: 15:36 Consultation ([facility]) Consulting Physician: JAMAR ZAMORANO MD Labs Laboratory Tests Test 09/13/24 01:31 09/13/24 01:35 09/13/24 05:02 09/13/24 09:17 Urine Color Yellow (Yellow) Urine Clarity Clear (Clear) Urine pH 7.0 (5.0-9.0) Urine Specific [place] 1.021 (1.001-1.035) Urine Protein 1+ (Negative) Urine Ketones Negative (Negative) Urine Blood Negative /uL (Negative) Urine Nitrite Negative (Negative) Urine Bilirubin Negative (Negative) Urine Urobilinogen Normal mg/dL (Negative) Urine Leukocyte Esterase Negative /uL (Negative) Urine RBC 6 /hpf (0 - 4) Urine Microscopic WBC 16 /HPF (0-5) Urine Squamous Epithelial Cells Few /hpf (<5) Urine Transitional Epithelial Cells Few /hpf (<2) Urine Bacteria Few /hpf (None Seen) Urine Hyaline Casts Few /lpf (0 - 2) Urine Granular Casts Mod /lpf (0) Urine Mucus Few (None Seen) Urine Yeast (Budding) Occasional /hpf (None Urine Glucose Normal mg/dL (Normal) Urine Opiates Screen Neg (NEGATIVE) Urine Fentanyl Screen Neg (NEGATIVE) Urine Barbiturates Screen Neg (NEGATIVE) Urine Phencyclidine Screen Neg (NEGATIVE) Urine Amphetamines Screen Neg (NEGATIVE) Urine Benzodiazepines Screen Neg (NEGATIVE) Urine Cocaine Screen Neg (NEGATIVE) Urine Cannabinoids Screen Neg (NEGATIVE) Prothrombin Time 10.3 sec (9.3-11.8) Prothromb Time International Ratio 0.97 (0.9-1.15) Activated Partial Thromboplast Time 29.2 SEC (24.5-34.5) Sodium Level 136 mmol/L (136-145) Potassium Level 3.9 mmol/L (3.5-5.1) Chloride Level 105 mmol/L (98-107) Carbon Dioxide Level 21 mmol/L (20-31) Anion Gap 10 (5-15) Blood Urea Nitrogen < 5 mg/dL (9-23) Creatinine 0.74 mg/dL (0.550-1.02) Glomerular Filtration Rate Calc 116 mL/min (>90) BUN/Creatinine Ratio 6.8 (10.0-20.0) Serum Glucose 101 mg/dL (74-106) Calcium Level 9.3 mg/dL (8.7-10.4) Total Bilirubin 0.5 mg/dL (0.2-1.0) Aspartate Amino Transf (AST/SGOT) 11 U/L (13-40) Alanine Aminotransferase (ALT/SGPT) < 9 U/L (7-40) Alkaline Phosphatase 203 U/L (46-116) Total Protein 6.6 g/dL (5.7-8.2) Albumin 4.0 g/dL (3.2-4.8) Test 09/14/24 08:36 White Blood Count 17.9 10^3/uL (4.4-10.8) Red Blood Count 3.84 10^6/uL (4.0-5.20) Hemoglobin 11.1 g/dL (12.2-16.2) Hematocrit 33.1 % (36.0-46.0) Mean Corpuscular Volume 86.2 fL (80.0-100.0) Mean Corpuscular Hemoglobin 29.0 pg (28.0-32.0) Mean Corpuscular Hemoglobin Concent 33.6 g/dL (32.0-36.0) Red Cell Distribution Width 14.1 % (11.8-14.3) Platelet Count 218 10^3/uL (140-450) Mean Platelet Volume 7.9 fL (6.9-10.8) Neutrophils (%) (Auto) 85.2 % (37.0-80.0) Lymphocytes (%) (Auto) 8.4 % (10.0-50.0) Monocytes (%) (Auto) 6.2 % (0.0-12.0) Eosinophils (%) (Auto) 0.1 % (0.0-7.0) Basophils (%) (Auto) 0.1 % (0.0-2.0) Neutrophils # (Auto) 15.2 10 ^3/uL (1.6-8.6) Lymphocytes # (Auto) 1.5 10 ^3/uL (0.4-5.4) Monocytes # (Auto) 1.1 10 ^3/uL (0-1.3) Eosinophils # (Auto) 0 10 ^3/uL (0-0.8) Basophils # (Auto) 0 10 ^3/uL (0-0.2) Nucleated Red Blood Cells 0.1 % Appearance: Stated age Psychomotor activity: WNL, Calm Behavioral: Cooperative Eye contact: Appropriate Speech: WNL Affect: Appropriate, Mood Congruent Mood: Euthymic Thought processes: Linear/Goal-directed Thought content: WNL Suicidal ideations: Absent Homicidal ideations: Absent Orientation: Person, Place, Time, Situation Memory intact: Recent Intellect: Average Abstractability: WNL Concentration: Adequate Attention: Adequate Judgement: WNL Insight: Good Vitals Vital Signs Date Time Temp Pulse Resp B/P (MAP) Pulse Ox O2 Delivery O2 Flow Rate FiO2 09/15/24 15:15 98.1 96 16 122/77 (92) 97 98.1 09/15/24 07:00 Room Air 0.0 09/13/24 16:22 100 Current medications Current Medications Medications Dose Ordered Sig/Mj Route Start Time Stop Time Status Last Admin Dose Admin Liz Garciael 1 pad PRN PRN TOP 09/13/24 01:45 09/13/24 02:15 1 PAD Sodium Lauryl Sulfate 240 ml PRN PRN TOP 09/13/24 01:45 09/13/24 02:15 240 ML Benzocaine 1 applic PRN PRN TOP 09/13/24 01:45 09/13/24 02:15 1 APPLIC Ondansetron HCl 4 mg Q4HP PRN IV 09/13/24 14:15 Hydromorphone HCl 1 mg Q3HPRN PRN IV 09/13/24 17:15 09/14/24 04:54 1 MG Lactated Ringer's 1,000 ml @ 125 mls/hr Q8H IV 09/13/24 17:45 09/14/24 04:59 125 MLS/HR Docusate Sodium 100 mg Q12HR PO 09/14/24 10:00 09/14/24 21:52 100 MG Ibuprofen 800 mg Q8HP PRN PO 09/14/24 06:30 09/15/24 04:19 800 MG Acetaminophen/ Hydrocodone Bitart 1 tab Q4HPRN PRN PO 09/14/24 06:30 Acetaminophen/ Hydrocodone Bitart 2 tab Q4HPRN PRN PO 09/14/24 06:30 09/15/24 10:44 2 TAB Dimethicone 80 mg QID PO 09/15/24 12:00 09/15/24 12:03 80 MG Treatment plan discussed: With staff Medication adjusted: No Labs ordered: No Psychotherapy provided: No Type: Voluntary History of Present Illness Reason for Consult : psychiatric evaluation PER ED PHYSICIAN: The patient is a 24-year-old 1, para 0 with due date of 09/12/2024, estimated gestational age of 40+ weeks, admitted for rupture of membrane. She had limited care. She had no shows since 08/11/2024. The patient presented to labor and delivery with spontaneous rupture of membranes. The patient progressed to complete, however, did not descent for 6 hours. Subsequently, the patient is taken for a primary . Estimated weight appears to be ____. Risks, complication, alternative discussed with the patient. The patient wishes to proceed with primary . PSYCHIATRIST HPI: The patient was seen and evaluated at [facility] ED via telepsychiatry platform. 24 yr old female delivered on 09/13 and scored a 17 on Roundup Depression Scale. She reported she is happy to have a little girl. She said she felt the end of her was very hard and draining and she felt like it would have been easier to not deal with it. She denied having any plan or intent to harm herself and feels very relieved to deliver her daughter. She noted she has had periods of depression in the past, but not to the point where she felt she needed medical care. She stated she has good family support and feels comfortable being a new parent. She denied having auditory or visual hallucinations and denied being suicidal or homicidal. She noted she has been and plans to continue . Past Psychiatric History: No history of hospitalization, treatment or suicide attempts. Current psych medications: none. NKDA Past Medical History : None. NKDA. Substance use: Denied use of alcohol and other substances Social History : Lives in [place] with partner who she's been with a year and half. Works at [employer]. DIAGNOSIS: Single delivery by Section Formulation: This 24 yr old female appears to have had a normal delivery by c- section. She does not appear to suffer from depression and does not need mental health care at this time. Plan: 1. Safety. The patient is a low risk for self harm and may be managed as an outpatient. 2. Legal-voluntary. 3. Medications: No medications are indicated at this time. Follow up with national account manager, ObGyn or PCM if depression develops. 4. Case discussed with NURIA Young. 5. Please recontact psychiatry for further follow up or reevaluation. Assessment/Diagnosis/Plan Reviewed: Labs, Medications, Previous Orders JAMAR ZAMORANO MD Sep 15, 2024 15:38
[2024-09-15 19:00] VITALS: BP 120/76; PULSE 78; RESP 18; TEMP 98.4; O2SAT 97
== END 2024-09-15 20:20 | disposition home or self-care (01) | DRG 540 ==
LOC: LDRP 00:28 → OBSVTOIN 00:50 → LDRP 00:57
PROVIDERS: ADMIT Obstetrics & Gynecology; ATTEND Nurse Practitioner Family
PROC: 10D00Z1 Extraction of Products of Conception, Low, Open Approach (ICD-10-PCS; principal; 2024-09-13 14:38)
DX: O48.0 Post-term pregnancy (principal); R71.0 Precipitous drop in hematocrit; O42.02 Full-term premature rupture of membranes, onset of labor within 24 hours of rupture; O62.1 Secondary uterine inertia; Z37.0 Single live birth; Z3A.40 40 weeks gestation of pregnancy
CPT/HCPCS: 36415; 62282; 76805; 80053; 80307; 81001; 81002; 85025; 85610; 85730; 86850; 86900; 86901; 94760; 96360; 96365; 96366; 96374; G0378; J0131; J0330; J2003; J2250; J2405; J2540; J2590; J2704; J7060